=== PATIENT | male | born 1950 | race Hispanic/Latino ===

== ENCOUNTER 2018-11-26 20:23 | Observation (INO) | payer OTHER ==
[~2018-11-26] VITALS: Ht 167.6 cm; Wt 71.5 kg
[2018-11-26 20:57] LABS: BASOPHILS % (AUTO) 0.7 % (0.0-5.0); EOSINOPHILS % (AUTO) 2.8 % (0.0-8.0); HEMATOCRIT 40.5 % (42-54); LYMPHOCYTES % (AUTO) 23.4 % (21.0-51.0); MEAN CORPUSCULAR HEMOGLOBIN 31.5 pg (27.0-33.0); MEAN CORPUSCULAR HGB CONC 34.8 g/dL (32.0-36.0); MEAN CORPUSCULAR VOLUME 90.4 fL (79-99); MONOCYTES % (AUTO) 9.2 % (3.0-13.0); NEUTROPHILS % (AUTO) 63.9 % (40.0-77.0); PLATELET COUNT (AUTO) 231 K/uL (130-400); RED BLOOD CELL COUNT(AUTO) 4.48 MIL/uL (4.50-6.20); RED CELL DISTRIBUTION WIDTH 12.6 % (11.0-15.5); WHITE BLOOD COUNT (AUTO) 7.3 K/uL (4.8-10.8)
[2018-11-26] MEDS ORDERED: NITROGLYCERIN 0.4 MG SL TAB SL ONE (20:59)
[2018-11-26] MEDS ORDERED: ASPIRIN 325 MG TABLET ONE (20:59)
[2018-11-26 21:10] LABS: INR 0.9 (0.85-1.15); PARTIAL THROMBOPLASTIN TIME 24.4 SEC (26.3-35.5); PROTHROMBIN TIME 9.5 SEC (9.6-11.6)
[2018-11-26 21:11] LABS: CREATININE 1.2 mg/dL (0.5-1.5); POTASSIUM 3.7 mmol/L (3.5-5.1)
[2018-11-26 21:32] LABS: ALBUMIN 3.8 g/dL (3.5-5.0); BILIRUBIN,TOTAL 0.4 mg/dL (0.2-1.0); TOTAL PROTEIN, SERUM 7.1 g/dL (6.0-8.3)
[2018-11-26] MEDS ORDERED: SODIUM CHLORIDE 0.9% 1000ML 1,000 ML IV ONE ×2 (22:08→22:56)
[2018-11-26] MEDS ORDERED: ACETAMINOPHEN EXTRA STRENGTH 500 MG TABLET ONE (22:21)
[2018-11-26] MEDS ORDERED: ENOXAPARIN SODIUM 40 MG/0.4 ML SYRINGE SQ ONE (23:04)
[2018-11-26] MEDS ORDERED: SODIUM CHLORIDE 0.9% 1000ML 1,000 ML IV SCH (23:15)
--- NOTE | 2018-11-27 | NUR ---
Pt. Kept NPO at this time and demonstrated understanding.
[2018-11-27 02:26] VITALS: BP 120/72
--- NOTE | 2018-11-27 03:19 | NUR ---
Pt.refused to have lab drawn.explained to pt the importance of being compliant to treatment and test and he said he doesnt want it done at all.
[2018-11-27 04:00] VITALS: BP 111/67
--- NOTE | 2018-11-27 07:15 | NUR ---
ASSESSMENT ENCOUNTERED PT ASLEEP BUT AROUSEABLE, A&OX3, CALM COOPERATIVE AND DOES NOT APPEAR TO BE IN ANY DISTRESS NOR ANY NEURO DEFICITS PRESENT. PT DENIES PAIN, SOB, NAUSEA. INFORMED PT OF CARDIAC ENZYMES BY LAB DRAW TO CONFIRM DIAGNOSIS AND THAT REFUSAL INCREASES RISKS FOR CHEST PAIN, MYOCARDIAL INFARCTION, STROKE, . PT AGREED TO HAVE LAB DRAW. PT IS NPO FOR [employer]. CALL LIGHT WITHIN REACH.
--- NOTE | 2018-11-27 07:35 | NUR ---
Report given to incoming NOD using SBAR ,all questions answered.Pending to consult Dr. Cunningahm.
--- NOTE | 2018-11-27 08:00 | NUR ---
CRISTOFER REFUSED DR MCLEAN UPDATED, NO ORDERS RECEIVED.
[2018-11-27 08:08] VITALS: BP 132/77
[2018-11-27 08:11] LABS: TROPONIN I 6.79 ng/mL (0.00-0.06)
[2018-11-27] MEDS ORDERED: ENOXAPARIN SODIUM 40 MG/0.4 ML SYRINGE SQ SCH (09:00)
[2018-11-27] MEDS ORDERED: REGADENOSON 0.4 MG/5 ML PF SYG IVP SCH (09:00)
--- NOTE | 2018-11-27 09:15 | NUR ---
DR MARTIN AT BEDSIDE UPDATE GIVEN, ORDERS RECEIVED.
[2018-11-27] MEDS ORDERED: METOPROLOL TARTRATE 25 MG TAB PO SCH (09:30)
[2018-11-27] MEDS ORDERED: ASPIRIN 81MG TAB.CHEW PO SCH (09:30)
[2018-11-27 11:52] VITALS: BP 142/77
--- NOTE | 2018-11-27 12:30 | NUR ---
ELEVATED TROPONIN DR MARTIN NOTIFIED, ORDERS RECEIVED TO NOTIFY PT OF HEART CATH FOR 11/28/18 IN AM.
--- NOTE | 2018-11-27 12:50 | NUR ---
CARDIAC CATHETERIZATION REFUSED PT A&OX3, CALM COOPERATIVE AND DOES NOT APPEAR TO BE IN ANY DISTRESS NOR ANY NEURO DEFICITS PRESENT. PT STATES HE DOES NOT WANT A CARDIAC CATH AND WOULD LIKE TO LEAVE AGAINST MEDICAL ADVICE. PT EXPLAINED AND VERBALLY UNDERSTOOD RISKS THAT INCLUDE MYOCARDIAL INFARCTION, STROKE AND . INFORMED PT THAT DR MARTIN AND DR MCLEAN WILL NEED TO BE NOTIFIED. PT IN ROOM SPEAKING WITH FAMILY.
[2018-11-27 13:03] LABS: TROPONIN I 10.79 ng/mL (0.00-0.06)
--- NOTE | 2018-11-27 13:10 | NUR ---
DR MCLEAN/DR MARTIN NOTIFIED OF AMA
--- NOTE | 2018-11-27 13:40 | NUR ---
AGAINST MEDICAL ADVICE FORM PT CONTINUES TO STATE THAT HE WOULD LIKE TO LEAVE AGAINST MEDICAL ADVICE AND IS AWARE OF THE RISKS AND ACCEPTS ALL RESPONSIBILITY OF NOT FOLLOW ADVICE OF DR MARTIN'S RECOMMENDATION FOR CARDIAC CATHETERIZATION. AGAINST MEDICAL ADVICE FORM SIGNED. PIV REMOVED. PT AMBULATED TO FRONT LOBBY ON OWN RECOGNIZANCE.
== END 2018-11-27 13:45 | disposition left against medical advice (07) ==
LOC: EDH 20:23 → EDHIP 22:42 → 2AH 11-27 01:16
PROVIDERS: ADMIT Family Medicine; ATTEND Family Medicine
DX: R07.89 Other chest pain (principal); E11.9 Type 2 diabetes mellitus without complications; E78.5 Hyperlipidemia, unspecified; I10 Essential (primary) hypertension; N40.0 Benign prostatic hyperplasia without lower urinary tract symptoms; Z79.01 Long term (current) use of anticoagulants; Z79.4 Long term (current) use of insulin; Z87.891 Personal history of nicotine dependence
CPT/HCPCS: 36415 ×2; 71045; 80053; 82550 ×3; 82948; 83874 ×3; 84484 ×3; 85025; 85610; 85730; 93005 ×2; 99284; G0378 ×15; J1650; J2785; J7030 ×2